=== PATIENT | female | born 1960 | race African-American/Black ===

== ENCOUNTER → 2017-05-28 | Outpatient (CLI) | payer MEDICARE, MEDICAID ==
[2015-02-16 09:20] VITALS: BP 122/65
[~2017-05-28] MED LIST: ATOR40TA59 PO; GLYB2.5T2 PO; IBUP-1007 PO; INSU100I13 SQ; LETR2.5T18 PO; METF100010 PO; METF500T4 PO; TAMO20TA PO
--- NOTE | 2017-05-29 10:47 | RAD ---
DATE: 05/28/2017 EXAM: DIGITAL SCREEN BILAT W/CAD HISTORY: History of right breast cancer in 2009. COMPARISON: Prior mammograms from 05/26/2016, 02/16/2015, 01/06/2013 This study was interpreted with the benefit of Computerized Aided Detection (CAD). The breast parenchyma shows scattered fibroglandular densities. Breast parenchyma level B. FINDINGS: Bilateral CC and MLO views of the breasts were performed. Right breast: Lumpectomy changes are identified in the right breast. A biopsy clip is identified in the upper outer right breast at posterior depth. There are no suspicious microcalcifications, masses or areas of architectural distortion. Left breast: There are no suspicious microcalcifications, masses or areas of architectural distortion. Left mammogram is stable from prior studies. IMPRESSION: Benign findings. Recommend annual screening mammography. BI-RADS CATEGORY: 2 BENIGN FINDING(S) RECOMMENDED FOLLOW-UP: 12M 12 MONTH FOLLOW-UP PQRS compliance statement: Patient information was entered into a reminder system with a target due date 07/28/2018 for the next mammogram. Mammography is a sensitive method for finding small breast cancers, but it does not detect them all and is not a substitute for careful clinical examination. A negative mammogram does not negate a clinically suspicious finding and should not result in delay in biopsying a clinically suspicious abnormality. "Our facility is accredited by the [employer] Mammography [employer]."
== END | disposition home or self-care (01) ==
LOC: MAMMO 14:02
PROVIDERS: ATTEND Family Medicine
DX: Z12.31 Encounter for screening mammogram for malignant neoplasm of breast (principal); Z85.3 Personal history of malignant neoplasm of breast
CPT/HCPCS: G0202; 77067

== ENCOUNTER → 2018-05-28 | Outpatient (CLI) | payer MEDICAID, MEDICARE ==
[2015-02-16 09:20] VITALS: BP 122/65
[~2018-05-28] MED LIST changes: +METF500T16 PO; -METF500T4 PO
--- NOTE | 2018-05-29 09:02 | RAD ---
DATE: 05/28/2018 EXAM: MAMMO [facility] SCREENING BILATERAL HISTORY: Previous right breast cancer COMPARISON: 05/28/2017 This study was interpreted with the benefit of Computerized Aided Detection (CAD). Breast Density: SCATTERED The breast parenchyma shows scattered fibroglandular densities. Breast parenchyma level B. FINDINGS: 2-D and 3-D tomosynthesis imaging was performed in CC and MLO projections. No new or enlarging breast densities are seen. Postlumpectomy changes are again noted on the right with coarse dystrophic calcifications. No suspicious microcalcifications have developed. IMPRESSION: Stable mammograms without evidence of malignancy. BI-RADS CATEGORY: 2 BENIGN FINDING(S) RECOMMENDED FOLLOW-UP: 12M 12 MONTH FOLLOW-UP PQRS compliance statement: Patient information was entered into a reminder system with a target due date for the next mammogram. Mammography is a sensitive method for finding small breast cancers, but it does not detect them all and is not a substitute for careful clinical examination. A negative mammogram does not negate a clinically suspicious finding and should not result in delay in biopsying a clinically suspicious abnormality. "Our facility is accredited by the [employer] Mammography [employer]."
== END | disposition home or self-care (01) ==
LOC: MAMMO 14:58
PROVIDERS: ATTEND Family Medicine
DX: Z12.31 Encounter for screening mammogram for malignant neoplasm of breast (principal)
CPT/HCPCS: 77063; 77067

== ENCOUNTER → 2019-05-29 | Outpatient (CLI) | payer MEDICARE ==
[2015-02-16 09:20] VITALS: BP 122/65
[~2019-05-29] MED LIST changes: -LETR2.5T18 PO; +LETROZOLE2.5 MG PO
--- NOTE | 2019-05-30 13:21 | RAD ---
DATE: 05/29/2019. EXAM: MAMMO [facility] SCREENING BILATERAL. HISTORY: Personal history right breast cancer status post breast conservation therapy. Routine mammographic surveillance. COMPARISON: 05/28/2018. This study was interpreted with the benefit of Computerized Aided Detection (CAD). FINDINGS: Breast Density: SCATTERED The breast parenchyma shows scattered fibroglandular densities. Breast parenchyma level B.. There are stable post breast conservation therapy changes inferiorly on the right. Coarse, vascular and scattered calcifications are benign. There are no suspicious masses, microcalcifications or architectural distortion. BI-RADS CATEGORY: 2 BENIGN FINDING(S). RECOMMENDED FOLLOW-UP: 12M 12 MONTH FOLLOW-UP. PQRS compliance statement: Patient information was entered into a reminder system with a target due date 05/29/2020 for the next mammogram. Mammography is a sensitive method for finding small breast cancers, but it does not detect them all and is not a substitute for careful clinical examination. A negative mammogram does not negate a clinically suspicious finding and should not result in delay in biopsying a clinically suspicious abnormality. "Our facility is accredited by the [employer] Mammography [employer]."
== END | disposition home or self-care (01) ==
LOC: MAMMO 08:46
PROVIDERS: ATTEND Family Medicine
DX: Z12.31 Encounter for screening mammogram for malignant neoplasm of breast (principal); N64.89 Other specified disorders of breast; Z85.3 Personal history of malignant neoplasm of breast
CPT/HCPCS: 77063; 77067